=== PATIENT | female | born 1935 | race Caucasian/White ===

== ENCOUNTER 2017-03-03 22:22 | Observation (INO) ==
[2017-03-04] MEDS ORDERED: Naloxone 0.4 MG/ML INJ IVP PRN (03:01)
[2017-03-04] MEDS ORDERED: Acetaminophen 325 MG TABLET PO PRN (03:01)
[2017-03-04] MEDS ORDERED: *HR* Morphine 2 MG/ML SYRINGE IVP PRN (03:18)
[2017-03-04 05:26] LABS: Basophils # 0.1 K/mcL (0.0-0.2); Basophils % 1.1 %; Eosinophils # 0.2 K/mcL (0.0-0.6); Eosinophils % 3.5 %; Hematocrit 35.1 % (35.3-44.9); Hemoglobin 11.5 g/dL (11.5-15.4); Immature Granulocytes % 0.4 % (0-4); Lymphocytes # 1.3 K/mcL (0.6-4.6); Lymphocytes % 24.4 %; Mean Corpuscular HGB Conc 32.8 g/dL (31.6-35.5); Mean Corpuscular Hemoglobin 28.3 pg (28.0-33.3); Mean Corpuscular Volume 86.2 fL (83.0-100.0); Mean Platelet Volume 9.9 fL (9.4-12.4); Monocytes # 0.5 K/mcL (0.0-1.3); Monocytes % 9.4 %; Neutrophils # 3.3 K/mcL (1.6-8.9); Platelet Count 215 K/mcL (140-400); Red Blood Count 4.07 M/mcL (3.82-4.97); Red Cell Distribution Width 12.9 % (11.5-14.5); Segmented Neutrophils % 61.2 %
[2017-03-04 05:50] LABS: BUN/Creatinine Ratio 18 (6-26); Blood Urea Nitrogen 15 mg/dL (7-20); Calcium 8.6 mg/dL (8.6-10.8); Carbon Dioxide 24 mEq/L (19-29); Chloride 108 mEq/L (98-109); Chol/HDL Ratio 3.1 (0-4.9); Cholesterol 194 mg/dL (< 200); Glucose 93 mg/dL (70-99); HDL Cholesterol 63 mg/dL (40-59); LDL Cholesterol,Calculated 115 mg/dL (0-99); Magnesium 1.9 mg/dL (1.6-2.6); Osmolality,Calculated 285 (280-300); Potassium 3.7 mEq/L (3.5-4.5); Sodium 137 mEq/L (136-145); Triglycerides 79 mg/dL (< 150); eGFR For African Americans > 60 (> 60); eGFR For Non-African Americans > 60 (> 60)
[2017-03-04] MEDS ORDERED: Regadenoson 0.4 MG/5 ML SYRINGE IVP ONE (06:01)
--- NOTE | 2017-03-04 06:05 | Internal Med History&Physical ---
Date of Encounter: 03/04/17 Time of Encounter: 06:03 Assessment and Plan (1) Chest pain Current visit: No Status: Acute Atypical right-sided chest pain, possibly pertaining to the chest wall versus ACS versus pulmonary embolism which would be unlikely given the low risk score and negative d-dimer. We will place patient on observation. Trend troponin. Rule out ACS. Obtain stress test. Qualifiers: Chest pain type: intercostal pain Qualified Code(s): R07.82 - Intercostal pain (2) Essential hypertension Current visit: Yes Status: Acute Continue lisinopril. (3) DVT prophylaxis Current visit: Yes Status: Acute Encourage ambulation Internal Medicine - H&P: HPI Chief complaint: Chest pain Admitted From: Intrahospital Transfer Plans for Post Hospital Care: Home History of present illness: Ms. Ellis is a 81 year old female with past medical history significant for hypertension presented to the hospital for evaluation of chest pain. She described this as located in the right side of the chest, sharp and pressure- like, moderate in intensity and not associated with exertion. She sells me that she was given nitroglycerin and her pain did not improve. Currently the patient's chest pain is dull and moderate, worse with movement. Denies associated diaphoresis shortness of breath fevers and chills and cough. A 10 point review of systems was negative. Family history was negative for premature coronary artery disease. Social history: Denies tobacco alcohol and drug use. Past Med Surg Social Fam HX - Past Medical History Medical history: GERD, hypertension Psychiatric history: no psych history - Past Surgical History Surgical History: hysterectomy - Social History Smoking Status: Never smoker Smokeless Tobacco Status: No Alcohol use: none Drug use: none Internal Medicine - H&P: Meds Calcium Polycarbophil [Fibercon] 625 mg PO DAILY 03/03/17 [History] Lactobacillus [Culturelle] 1 each PO DAILY 03/03/17 [History] Lisinopril [Zestril] 10 mg PO DAILY 03/03/17 [History] Loratadine [Allergy Relief] 10 mg PO DAILY 03/03/17 [History] Omeprazole [PriLOSEC] 20 mg PO DAILY 03/03/17 [History] Allergies No Known Allergies Allergy (Verified 03/03/17 19:32) All Systems PM: A 10-system review of systems was performed and is negative for pertinent findings except as documented above in the HPI. - Constitutional Vitals: Temp Pulse Resp BP Pulse Ox 97.8 F 57 16 118/55 96 03/04/17 05:00 03/04/17 05:00 03/04/17 05:00 03/04/17 05:00 03/04/17 05:00 - Eye Eye exam: Present: PERRL, conjuntiva pink, sclera anicteric Pupils: Present: PERRL - Respiratory Respiratory exam: Present: CTAB. Absent: accessory muscle use, rales, rhonchi, wheezes - Cardiovascular Cardiovascular exam: Present: RRR, +S1, +S2. Absent: diastolic murmur, gallop, rubs, systolic murmur - GI/Abdominal GI/Abdominal exam: Present: normal bowel sounds, soft, no peritoneal signs. Absent: distended, tenderness - Extremities Exam Extremities exam: Present: warm, radial pulses palpable and symetrical. Absent : calf tenderness, cyanotic, pedal edema - Skin Skin exam: Present: dry, intact Internal Med - H&P Results - Labs CBC & Chem 7: 03/04/17 04:35 03/04/17 04:35 Labs: Short CBC 03/04/17 Range/Units 04:35 WBC 5.4 (4.3-11.1) K/mcL Hgb 11.5 D (11.5-15.4) g/dL Hct 35.1 L (35.3-44.9) % Plt Count 215 (140-400) K/mcL Neutrophils # 3.3 (1.6-8.9) K/mcL BMP 03/04/17 04:35 Sodium 137 Potassium 3.7 Chloride 108 Carbon Dioxide 24 BUN 15 Creatinine 0.83 Glucose 93 Calcium 8.6 Cardiac Enzymes 03/04/17 Range/Units 04:35 Troponin I 0.00 (0-0.03) ng/mL
[2017-03-04 07:08] VITALS: BP 140/62
[2017-03-04] MEDS ORDERED: Loratadine 10 MG TABLET PO SCH (09:00)
--- NOTE | 2017-03-04 13:17 | Nuclear Medicine Stress Report ---
Regadenoson Nuclear Stress Name: Elise Ellis Date of Study: 03/04/2017 Date: 1935 Ht: 64.0 in Medical Record#: [id number] Age: 81 Wt: 165.0 lb Gender: Female Order #: [id number] Location: [facility] OP Room: [facility] Supervising Provider: Joe Cervantes CNP Reading Physician: Kiersten Nolasco DO Ordering Physician: Alice Casillas MD Primary Care Physician: Bogdan Kendrick MD Stress Technologist: Chantelle Marte RRT Director Card: Drea Keller Indications: Chest Pain Impression: Perfusion imaging was negative for ischemia or infarct. Pharmacologic ECG was negative for ischemia at the level of heart rate achieved. Gated EF = >70%. History: Hypertension Stress Test Summary: Stress Test Type: Pharmacologic Regadenoson 0.4mg/5ml given IV Baseline Information: Initial Heart Rate: 65 Blood Pressure: 138/68 Stress Information: Test Terminated Due to (primary): As per protocol Maximum Blood Pressure: 142/68 Maximum Heart Rate: 103 Percent Maximum Heart Rate Achieved: 75 Double Product: [id number] METS Reached: 1 Symptoms: No chest symptoms Nuclear Summary: SPECT myocardial perfusion imaging using Tc99m Sestamibi given intravenously was performed at rest and following cardiac stress testing. The resting images were obtained following initial dose of 9 mCi. Following stress an additional dose of 32.5 mCi was given at peak exercise or 30 seconds post regadenoson infusion. Medication Given: Time Medication Dose Units Route Findings: Stress Note * Resting ECG demonstrated normal sinus rhythm with poor R-wave progression. * Pharmacologic stress ECG is negative for ischemia at level of heart rate achieved. * No arrhythmias were noted during stress. * Patient had no chest pain during stress. Hemodynamic responses * Normal hemodynamic responses to pharmacologic stress. Study Quality * Study quality is good. Gated EF > 70% * Gated EF > 70%. Left Ventricle * The left ventricle is not dilated. TID * No evidence of transient ischemic dilatation. Lung Uptake * There is no evidence of increase lung uptake. NORMALS * Normal wall motion. * Normal segmental perfusion in stress. * Normal Segmental Perfusion in rest. Updated by Kiersten Nolasco on 03/04/2017 1:12:31 PM electronically signed on 03/04/2017 1:13:05 PM with status of Final
--- NOTE | 2017-03-04 14:07 | Discharge Summary ---
Date of Encounter: 03/04/17 Time of Encounter: 14:04 - Discharge Diagnosis (1) Chest pain Priority: Primary Status: Resolved Qualifiers: Chest pain type: intercostal pain Qualified Code(s): R07.82 - Intercostal pain (2) Essential hypertension Priority: Secondary Status: Chronic (3) DVT prophylaxis Priority: Secondary Status: Acute - Discharge Medications Home Medications: Calcium Polycarbophil [Fibercon] 625 mg PO DAILY 03/03/17 [History] Lactobacillus [Culturelle] 1 cap PO DAILY 03/03/17 [History] Lisinopril [Zestril] 10 mg PO DAILY 03/03/17 [History] Loratadine [Allergy Relief] 10 mg PO DAILY 03/03/17 [History] Omeprazole [PriLOSEC] 20 mg PO DAILY 03/03/17 [History] Allergies/Adverse Reactions: Allergies No Known Allergies Allergy (Verified 03/03/17 19:32) Procedures/tests Complete & Pending: Procedures Performed prior 72 hours Category Date Time Status NM corinne perf SPECT multi [NM] Routine Exams 03/04/17 03:16 Taken SP pharm nuclear stress Routine Y 03/04/17 07:30 Completed Date of admission: 03/03/17 23:46 Primary care physician: Bogdan Kendrick MD Discharging clinician: Alice Casillas Anticipated date of discharge: 03/04/17 - Patient Status Disposition: Home, Self-Care Condition: Good Functional capacity at discharge: independent ambulation Overall status at discharge: patient is back to baseline - Discharge Instructions Follow Up With: Bogdan Kendrick MD [Primary Care Provider] - 03/13/17 2:00 pm Additional Instructions: Please follow up with your primary care physician within five days after your discharge from the hospital. Continue to take baby aspirin (aspirin 81mg) once a day until your follow up with your primary care physician. Resume all your home medications as prescribed by your primary care physician. - Diet and Activity Activity: resume usual activities as tolerated Diet: low salt diet Hospital course: Ms. Ellis is a 81 year old female with PMH of hypertension presents to the hospital for evaluation of chest pain. Pt had negative serial TNI and underwent nuclear stress test. Pt's nuclear stress test was negative for any ischemic perfusion defect. She states her pain was localized to right chest wall underneath her right breast bone. At this time she states she feels comfortably but denies any sob, palpitations and states she feels better since her hospitalization. States she did not get any relief from the nitroglycerin she received in the ER. At this time, she is hemodynamically stable and will be discharged to home with follow up with her primary care physician. Patient demonstrates understanding of her diagnosis and agrees with the discharge care and plan. - Time Spent with Patient Total time spent providing and/or coordinating discharge services: Less than 30 minutes - Constitutional Vitals: Temp Pulse Resp BP Pulse Ox 98.2 F 67 16 140/62 97 03/04/17 07:04 03/04/17 07:04 03/04/17 07:04 03/04/17 07:04 03/04/17 07:04 General appearance: Present: cooperative, A&O X 3, pleasant, no acute distress, answers questions appropriately - Head Head exam: Present: atraumatic, normocephalic - Eye Eye exam: Present: normal appearance, conjuntiva pink, sclera anicteric - Respiratory Respiratory exam: Present: CTAB. Absent: accessory muscle use, rales, rhonchi, wheezes - Cardiovascular Cardiovascular exam: Present: RRR, +S1, +S2. Absent: diastolic murmur, gallop, rubs, systolic murmur - GI/Abdominal GI/Abdominal exam: Present: normal bowel sounds, soft, no peritoneal signs. Absent: distended, tenderness - Extremities Exam Extremities exam: Present: warm, radial pulses palpable and symetrical. Absent : calf tenderness, cyanotic, pedal edema - Neurological Exam Neurological exam: Present: alert, oriented X3 - Psychiatric Psychiatric exam: Present: normal affect, normal mood
== END 2017-03-04 16:30 | disposition home or self-care (01) ==
LOC: 2NENU
PROVIDERS: ADMIT Internal Medicine; ATTEND Internal Medicine

== ENCOUNTER 2022-01-17 10:23 | Observation (INO) ==
[2022-01-17] MEDS ORDERED: Piperacillin/Tazobactam 3.375 GM in 0.9 % Sodium Chloride Mini Bag 100 ML IVPB ONE (10:54)
[2022-01-17] MEDS ORDERED: Naloxone 0.4 MG/ML INJ IVP PRN (11:46)
[2022-01-17 11:48] LABS: Basophils % 0.3 %; Eosinophils % 0.4 %; Hematocrit 37.8 % (35.3-44.9); Hemoglobin 12.7 g/dL (11.5-15.4); Immature Granulocytes % 0.3 % (0-4); Lymphocytes # 0.9 K/mcL (0.6-4.6); Lymphocytes % 8.6 %; Mean Corpuscular HGB Conc 33.6 g/dL (31.6-35.5); Mean Corpuscular Hemoglobin 27.6 pg (28.0-33.3); Mean Corpuscular Volume 82.2 fL (83.0-100.0); Mean Platelet Volume 8.8 fL (9.4-12.4); Monocytes # 0.9 K/mcL (0.0-1.3); Monocytes % 8.9 %; Neutrophils # 8.5 K/mcL (1.6-8.9); Platelet Count 271 K/mcL (140-400); Red Cell Distribution Width 13.4 % (11.5-14.5); Segmented Neutrophils % 81.5 %; White Blood Count 10.4 K/mcL (4.3-11.1)
[2022-01-17 12:14] LABS: Alanine Aminotransferase 14 Units/L (7-52); Albumin/Globulin Ratio 1.4 (1.1-2.2); Alkaline Phosphatase 69 Units/L (34-104); Aspartate Amino Transferase 17 Units/L (13-39); BUN/Creatinine Ratio 15 (6-26); Bilirubin,Total 0.6 mg/dL (0.3-1.0); Blood Urea Nitrogen 11 mg/dL (8-23); Calcium 9.2 mg/dL (8.6-10.3); Carbon Dioxide 21 mEq/L (23-29); Chloride 98 mEq/L (98-107); Globulin 2.9 g/dL (2.4-3.5); Glucose 124 mg/dL (70-105); Osmolality,Calculated 269 (280-300); Phosphorous 2.9 mg/dL (2.7-4.5); Potassium 3.8 mEq/L (3.5-5.1); Sodium 129 mEq/L (136-145); Total Protein 6.9 g/dL (6.4-8.9); eGFR For African Americans > 60 (> 60); eGFR For Non-African Americans > 60 (> 60)
[2022-01-17] MEDS ORDERED: Acetaminophen 325 MG TABLET PO PRN (12:49)
[2022-01-17] MEDS ORDERED: Ondansetron 4 MG/2 ML VIAL IVP PRN (13:10)
[2022-01-17] MEDS: 0.9 % Sodium Chloride 1,000 ML IVC SCH (14:46)
[2022-01-17 18:54] LABS: BUN/Creatinine Ratio 12 (6-26); Blood Urea Nitrogen 8 mg/dL (8-23); Calcium 8.7 mg/dL (8.6-10.3); Carbon Dioxide 20 mEq/L (23-29); Chloride 100 mEq/L (98-107); Glucose 89 mg/dL (70-105); Osmolality,Calculated 268 (280-300); Potassium 3.8 mEq/L (3.5-5.1); Sodium 130 mEq/L (136-145); eGFR For African Americans > 60 (> 60); eGFR For Non-African Americans > 60 (> 60)
[2022-01-17] MEDS: Piperacillin/Tazobactam 3.375 GM in 0.9 % Sodium Chloride Mini Bag 100 ML IVPB SCH (20:00)
[2022-01-18] MEDS: Piperacillin/Tazobactam 3.375 GM in 0.9 % Sodium Chloride Mini Bag 100 ML IVPB SCH ×3 (04:48→19:46)
[2022-01-18] MEDS: 0.9 % Sodium Chloride 1,000 ML IVC SCH ×2 (04:49→22:48)
[2022-01-18 05:04] LABS: Basophils % 0.4 %; Eosinophils # 0.1 K/mcL (0.0-0.6); Eosinophils % 1.5 %; Hematocrit 35.3 % (35.3-44.9); Hemoglobin 11.6 g/dL (11.5-15.4); Immature Granulocytes % 0.4 % (0-4); Lymphocytes # 1.2 K/mcL (0.6-4.6); Lymphocytes % 17.5 %; Mean Corpuscular HGB Conc 32.9 g/dL (31.6-35.5); Mean Corpuscular Hemoglobin 27.4 pg (28.0-33.3); Mean Corpuscular Volume 83.3 fL (83.0-100.0); Mean Platelet Volume 8.8 fL (9.4-12.4); Monocytes # 0.7 K/mcL (0.0-1.3); Monocytes % 11.1 %; Neutrophils # 4.6 K/mcL (1.6-8.9); Platelet Count 265 K/mcL (140-400); Red Blood Count 4.24 M/mcL (3.82-4.97); Red Cell Distribution Width 13.5 % (11.5-14.5); Segmented Neutrophils % 69.1 %; White Blood Count 6.7 K/mcL (4.3-11.1)
[2022-01-18 05:24] LABS: BUN/Creatinine Ratio 12 (6-26); Blood Urea Nitrogen 8 mg/dL (8-23); Calcium 8.6 mg/dL (8.6-10.3); Carbon Dioxide 18 mEq/L (23-29); Chloride 102 mEq/L (98-107); Glucose 88 mg/dL (70-105); Magnesium 1.9 mg/dL (1.6-2.6); Osmolality,Calculated 270 (280-300); Phosphorous 3.5 mg/dL (2.7-4.5); Potassium 3.6 mEq/L (3.5-5.1); Sodium 131 mEq/L (136-145); eGFR For African Americans > 60 (> 60); eGFR For Non-African Americans > 60 (> 60)
[2022-01-18] MEDS: amLODIPine 5 MG TABLET PO SCH (08:23)
[2022-01-18] MEDS: lisinopriL 20 MG TABLET PO SCH (08:23)
[2022-01-18] MEDS: Lactobacillus 1 EACH CAP.SPRINK PO SCH (08:23)
[2022-01-18] MEDS: Loratadine 10 MG TABLET PO SCH (08:24)
[2022-01-19] MEDS: Piperacillin/Tazobactam 3.375 GM in 0.9 % Sodium Chloride Mini Bag 100 ML IVPB SCH ×2 (04:15→12:01)
[2022-01-19] MEDS: Lactobacillus 1 EACH CAP.SPRINK PO SCH (09:06)
[2022-01-19] MEDS: amLODIPine 5 MG TABLET PO SCH (09:06)
[2022-01-19] MEDS: Loratadine 10 MG TABLET PO SCH (09:06)
[2022-01-19] MEDS: lisinopriL 20 MG TABLET PO SCH (09:06)
[2022-01-19 11:27] VITALS: TEMP 97.9
[2022-01-19] MEDS: 0.9 % Sodium Chloride 1,000 ML IVC SCH (12:33)
[2022-01-19 14:08] LABS: Basophils # 0.1 K/mcL (0.0-0.2); Basophils % 0.9 %; Eosinophils # 0.1 K/mcL (0.0-0.6); Eosinophils % 1.4 %; Hematocrit 36.9 % (35.3-44.9); Hemoglobin 12.1 g/dL (11.5-15.4); Immature Granulocytes % 0.4 % (0-4); Lymphocytes # 1.1 K/mcL (0.6-4.6); Lymphocytes % 19.6 %; Mean Corpuscular HGB Conc 32.8 g/dL (31.6-35.5); Mean Corpuscular Hemoglobin 27.3 pg (28.0-33.3); Mean Corpuscular Volume 83.1 fL (83.0-100.0); Mean Platelet Volume 8.8 fL (9.4-12.4); Monocytes # 0.6 K/mcL (0.0-1.3); Monocytes % 9.6 %; Neutrophils # 3.9 K/mcL (1.6-8.9); Platelet Count 299 K/mcL (140-400); Red Blood Count 4.44 M/mcL (3.82-4.97); Red Cell Distribution Width 13.1 % (11.5-14.5); Segmented Neutrophils % 68.1 %; White Blood Count 5.7 K/mcL (4.3-11.1)
[2022-01-19 14:21] LABS: Alanine Aminotransferase 13 Units/L (7-52); Albumin 3.7 g/dL (3.5-5.7); Albumin/Globulin Ratio 1.4 (1.1-2.2); Alkaline Phosphatase 56 Units/L (34-104); Aspartate Amino Transferase 18 Units/L (13-39); BUN/Creatinine Ratio 7 (6-26); Bilirubin,Total 0.5 mg/dL (0.3-1.0); Blood Urea Nitrogen 5 mg/dL (8-23); Calcium 8.7 mg/dL (8.6-10.3); Carbon Dioxide 20 mEq/L (23-29); Chloride 104 mEq/L (98-107); Globulin 2.7 g/dL (2.4-3.5); Glucose 133 mg/dL (70-105); Osmolality,Calculated 271 (280-300); Potassium 3.9 mEq/L (3.5-5.1); Sodium 131 mEq/L (136-145); Total Protein 6.4 g/dL (6.4-8.9); eGFR For African Americans > 60 (> 60); eGFR For Non-African Americans > 60 (> 60)
[2022-01-19 15:59] VITALS: BP 148/84; PULSE 72; O2SAT 96
== END 2022-01-19 18:10 | disposition home or self-care (01) ==
LOC: EMEROOARM 10:23 → 3ANU 10:23
PROVIDERS: ADMIT Hospitalist; ATTEND Hospitalist